=== PATIENT | male | born 1945 | race Caucasian/White ===

== ENCOUNTER 2016-11-07 05:48 | Inpatient (IN) | payer OTHER ==
[2016-11-07] MEDS ORDERED: LR 1,000 ML IV ONE (06:19)
[2016-11-07] MEDS ORDERED: LIDOCAINE 1% 2 ML INJ ID PRN (06:19)
[2016-11-07] MEDS ORDERED: VANCOMYCIN 1 GM/NS 250 ML BAG IV ONE (06:30)
--- NOTE | 2016-11-07 06:39 | PDHPUP ---
History & Physical Update H&P update statement: This history and physical update is based on an assessment of the patient which was completed after admission or registration (within 24 hours), but prior to the surgery/procedure. H&P update: H&P reviewed & patient examined, no change in patient's condition since H&P completed
[2016-11-07] MEDS ORDERED: BUPIVACAINE/EPI 0.25% 30 ML SDV ONE (07:05)
[2016-11-07] MEDS ORDERED: THROMBIN (BOVINE) 20,000 UNIT VIAL TP ONE (07:05)
[2016-11-07] MEDS ORDERED: BACITRACIN 50,000 UNITS/10 ML SYR IRR ONE ×2 (07:05→12:26)
[2016-11-07] MEDS ORDERED: LACTULOSE 20 GM/30 ML UDCUP PO PRN (07:29)
[2016-11-07] MEDS ORDERED: ONDANSETRON DISINTEGRATING 4 MG TAB PO PRN (07:29)
[2016-11-07] MEDS ORDERED: NALOXONE HCL 0.4 MG/ML INJ IVP PRN ×2 (07:29→13:20)
[2016-11-07] MEDS ORDERED: BISACODYL 10 MG SUPP PR PRN (07:29)
[2016-11-07] MEDS ORDERED: MAGNESIUM HYDROXIDE 30 ML UDCUP PO PRN (07:29)
[2016-11-07] MEDS ORDERED: diphenhydrAMINE 25 MG CAP PO PRN (07:29)
[2016-11-07] MEDS ORDERED: NS 500 ML IV PRN (07:29)
[2016-11-07] MEDS ORDERED: DEXMEDETOMIDINE HCL 400 MCG in NS 100 ML IV SCH (07:30)
[2016-11-07] MEDS ORDERED: LIDOCAINE 2% 100 MG/5 ML SYR ONE (07:38)
[2016-11-07] MEDS ORDERED: PHENYLEPHRINE 10 MG/ML SDV ONE (07:38)
[2016-11-07] MEDS ORDERED: METOCLOPRAMIDE 10 MG/2 ML VIAL ONE (07:38)
[2016-11-07] MEDS ORDERED: PROPOFOL/EMULSION 500 MG/50 ML BOTTLE IV ONE ×4 (07:38→12:11)
[2016-11-07] MEDS ORDERED: ROCURONIUM 100 MG/10 ML VIAL ONE (07:38)
[2016-11-07] MEDS ORDERED: DEXAMETHASONE 4 MG/ML VIAL ONE ×2 (07:38)
[2016-11-07] MEDS ORDERED: MIDAZOLAM 2 MG/2 ML VIAL ONE (07:41)
--- NOTE | 2016-11-07 09:23 | PDANEPAE ---
ANE Past Medical History - Cardiovascular History Hx Hypertension: No Hx Arrhythmias: No Hx Chest Pain: No Hx Coronary Artery / Peripheral Vascular Disease: Yes Hx CHF / Valvular Disease: No Hx Palpitations: No Cardiovascular History Comment: HYPERLIPIDEMIA W/PARTIALLY BLOCKED ARTERIES. ANGIOGRAM 2016 NO STENTS - Pulmonary History Hx COPD: No Hx Asthma/Reactive Airway Disease: No Hx Recent Upper Respiratory Infection: No Hx Oxygen in Use at Home: No Hx Sleep Apnea: No Sleep Apnea Screening Result - Last Documented: Negative - Neurologic History Hx Cerebrovascular Accident: No Hx Seizures: No Hx Dementia: No - Endocrine History Hx Diabetes: No - Renal History Hx Renal Disorders: Yes Renal History Comment: kidney stones past - Liver History Hx Hepatic Disorders: No - Neurological & Psychiatric Hx Hx Neurological and Psychiatric Disorders: No - Cancer History Hx Cancer: No - Congenital Disorder History Hx Congenital Disorders: No - GI History Hx Gastrointestinal Disorders: No - Other Health History Other Health History: [place] ON LT - Chronic Pain History Chronic Pain: Yes (LOWER BACK) - Surgical History Prior Surgeries: S1-L3 FUSION ANE Review of Systems - Exercise capacity METS (RN): 4 METS - Cardio Pulmonary Function Testing Nuclear stress test: see chart ANE Patient History - Allergies Allergies/Adverse Reactions: Penicillins Allergy (Severe, Verified 11/07/16 06:23) Anaphylaxis - Home Medications Home Medications: Herbals/Supplements -Info Only 1 ea PO DAILY 09/01/14 [Last Taken 1 Week Ago] Aspirin [Aspirin 81mg (*)] 162 mg PO DAILY 10/12/16 [Last Taken 10/31/16] Atorvastatin Calcium [Lipitor 20 mg (*)] 20 mg PO DAILY 10/12/16 [Last Taken 05/25 05:00] Cholecalciferol (Vitamin D3) [Vitamin D3] 5,000 unit PO DAILY 10/12/16 [Last Taken Unknown] - NPO status NPO Since - Liquids (Date): 11/06/16 NPO Since - Liquids (Time): 22:00 NPO Since - Solids (Date): 11/06/16 NPO Since - Solids (Time): 21:30 - Smoking Hx Smoking Status: Former smoker - Family Anes Hx Family Hx Anesthesia Complications: NONE ANE Labs/Vital Signs - Vital Signs Blood Pressure: 144/80 Heart Rate: 60 Respiratory Rate: 16 O2 Sat (%): 98 Height: 175.26 cm Weight: 77.111 kg ANE Physical Exam - Airway Mallampati Score: Class 2 Mouth exam: dentures - Pulmonary Pulmonary: no respiratory distress - Cardiovascular Cardiovascular: regular rate and rhythym - ASA Status ASA Status: II ANE Anesthesia Plan Lines/Monitors: arterial line (possible)
[2016-11-07] MEDS ORDERED: GLYCOPYRROLATE 0.2 MG/1 ML VIAL ONE (10:06)
[2016-11-07] MEDS ORDERED: VANCOMYCIN HCL/NORMAL SALINE 250 ML IV ONE ×2 (11:42→19:00)
[2016-11-07] MEDS ORDERED: SUGAMMADEX SODIUM 200 MG/2 ML VIAL IVP ONE (12:25)
[2016-11-07] MEDS ORDERED: OXYCODONE/APAP 5/325 TAB PO PRN (13:20)
[2016-11-07] MEDS ORDERED: ONDANSETRON 4 MG/2 ML VIAL IVP PRN (13:20)
[2016-11-07] MEDS ORDERED: LR 500 ML IV PRN (13:20)
[2016-11-07] MEDS ORDERED: HYDROCODONE/APAP 5/325 TAB PO PRN (13:20)
[2016-11-07] MEDS ORDERED: ACETAMINOPHEN 500 MG TAB PO PRN (13:20)
[2016-11-07] MEDS ORDERED: MEPERIDINE 25 MG/ML SYR IVP PRN (13:20)
[2016-11-07] MEDS ORDERED: HYDROmorphONE/DILAUDID 1 MG/ML SYR IVP PRN (13:20)
--- NOTE | 2016-11-07 13:23 | POSTANESTH ---
Post Anesthetic Evaluation Respiratory Status: Normal, Stable Level of Consciousness/Mental Status: Can Participate in Eval Pain Control: Adequate, Prn Tx Ordered Nausea/Vomiting Control: Adequate, Prn Tx Ordered Complications Possibly Related to Anesthesia: None Noted
[2016-11-07] MEDS ORDERED: fentaNYL 100 MCG/2 ML INJ ONE (13:33)
[2016-11-07] MEDS: fentaNYL 100 MCG/2 ML INJ IVP PRN ×2 (13:36→13:49)
--- NOTE | 2016-11-07 13:50 | SOAPPROG ---
SOAP Progress Note Assessment/Plan: Post Op Visit: S: Awake and alert. NAD. Pt with expected lower back pain O: AFVSS/PERRLA/EOMI no droop CN 2-12 grossly intact +lt touch 5/5 BUE/BLE = CDI HAMLET in place and working A/P: 71 yo male that is s/p removal of L3 screws with new TLIF at L1/2 and L2/3 with tie PSF L1-S1 -brace fit already -pt seen by Dr Piper -no bending or twisting -call with any questions or concerns 11/07/16 13:45 Objective: Vital Signs Temp Pulse Resp BP Pulse Ox 36.6 C 60 16 144/80 H 98 11/07/16 07:00 11/07/16 09:23 11/07/16 09:23 11/07/16 09:23 11/07/16 09:23 ICD10 Worksheet Patient Problems: Problems Problem Status Onset Arthrodesis status Acute Low back pain Acute Lumbosacral stenosis Acute
[2016-11-07] MEDS ORDERED: ceFAZolin 2 GM/DEXTROSE 100 ML IV SCH (14:00)
[2016-11-07] MEDS: METHOCARBAMOL 750 MG TAB PO PRN (15:38)
[2016-11-07] MEDS: ACETAMINOPHEN 500 MG TAB PO SCH ×2 (15:38→21:13)
[2016-11-07] MEDS: ATORVASTATIN CALCIUM 20 MG TAB PO SCH (15:47)
[2016-11-07] MEDS: morphINE SR 15 MG TAB PO SCH ×2 (15:48→20:33)
[2016-11-07] MEDS: SENNOSIDES/DOCUSATE SODIUM TAB PO SCH ×2 (15:48→20:32)
[2016-11-07] MEDS: FAMOTIDINE 20 MG TAB PO SCH ×2 (15:48→20:32)
[2016-11-07] MEDS: HYDROmorphONE/DILAUDID 6 MG/30 ML PCA IV PRN (17:07)
[2016-11-07 18:58] LABS: ANION GAP 6 mEq/L (8-16); CALCIUM 8.7 mg/dL (8.5-10.4); CARBON DIOXIDE 23 mEq/l (22-31); CHLORIDE 112 mEq/L (97-110); GLOMERULAR FILTRATION RATE > 60; GLUCOSE 132 mg/dL (70-100); MAGNESIUM 1.8 mg/dL (1.6-2.3); POTASSIUM 4.4 mEq/L (3.5-5.2); SODIUM 141 mEq/L (134-144)
--- NOTE | 2016-11-07 21:18 | GCON ---
[f rep st] CONSULTATION GEOSPATIAL ANALYST CONSULTATION Patient examined postoperatively after receiving a removal of L3 screws, a new TLIF at L1-L2, L2-L3, and a PSF at L1 through S1. The patient is a very pleasant 71-year-old white male with a past medi lavell history of hypercholesterolemia and chronic back pain. Again, he is examined postoperatively an d discussed with the patient overall he is doing quite well. His pain is reasonably well controlled . He denies any chest pain, pleuritic-type chest pain or angina equivalent. No fever or night swea ts. No nausea, vomiting, or diarrhea. PAST MEDICAL HISTORY: Significant for hypercholesterolemia. ALLERGIES: Penicillins. SOCIAL HISTORY: Previous smoking history, none for over 30 years. He drinks 2 glasses of wine per night. 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 He is , has excellent family support. MEDICATIONS: Currently include Tylenol, Lipitor, Dulcolax, Benadryl, Lovenox, Pepcid, Dilaudid REFRIGERATION TECHNICIAN, milk of magnesia, Senokot, vancomycin. PHYSICAL EXAMINATION: VITAL SIGNS: Blood pressure is 98/67, pulse 81, respirations 15, temperature is 36.3, oxygen saturation 98% on 2 L. GENERAL: He is a well-developed, well-nourished, 71-year-o ld white male, who is resting comfortably in no acute distress. HEENT: Eyes are MUKUL, EOMI. Throa t shows no erythema or tonsillar hypertrophy. NECK: Supple. There is no cervical adenopathy. HEA RT: Regular rate and rhythm without murmurs, rubs, or gallops. LUNGS: Clear to auscultation. No wheeze or rhonchi. ABDOMEN: Soft, nontender. Bowel sounds are present in all 4 quadrants. EXTREM ITIES: No clubbing, cyanosis, or edema. LABORATORY DATA: Currently pending. IMPRESSION: 1. Chronic back pain. 2. Status post removal of L3 screws with TLIF at L1-L2, L2-L3, and a PSF L1-S1. 3. Pain adequately controlled. RECOMMENDATIONS: 1. Continue adequate pain control. 2. DVT and PE prophylaxis. 3. Stress ulcer prophylaxis. 4. Early ambulation. 5. Physical therapy and occupational therapy. 6. Patient has been fit for a brace. /[id number]/MODL
--- NOTE | 2016-11-07 21:33 | GOP ---
[f rep st] OPERATIVE REPORT DATE OF OPERATION: 11/07/2016 SURGEON: Joe Piper MD BEVERAGE HOST: Devonte Maurer PA-C. 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 PROCEDURE PERFORMED: Removal of posterior segmental instrumentation, posterolateral and interverteb ral arthrodesis L1-2, L2-3 (62768, [id number]), placement of new posterior segmental instrumentation L1, L2 and L3, spinal stereotaxy, same-incision bone graft harvest, placement of biomechanical intervert ebral device L1-2, L2-3. FINDINGS: ESTIMATED BLOOD LOSS: 400 cc. DESCRIPTION OF PROCEDURE: The patient was taken to the operating room, placed in a supine position. General anesthesia was begun. He was flipped prone onto the Gilmar table. Care was taken to pad all points of contact. His left arm was put up in usual position. The right arm was placed at his side, flexed at the elbow, and flexed forward at the shoulder, but the shoulder was not abducted. He was in a very physiologic position and secured in this way. He was sterilely prepped and draped in usual fashion. We opened the rostral portion of the prior incision and extended it rostrally for about 7 cm. Subcutaneous tissue was dissected using PlasmaBlade down through the fascia and a subp eriosteal dissection was made down the T12 lamina. The L1-L2 lamina was exposed. The L3 screws and L4 screws were exposed. We removed the cap screws from the L3 and L4 screws. We then cut the skyler at the L3 screws and removed both of the L3 screws. We performed an O-arm spin prior to this exposu re, looking at the quality of the fusion from L3-S1, and there was no evidence of pseudoarthrosis, t here was no loosening of hardware, and there appeared to be solid posterolateral and intervertebral arthrodesis at each of those levels. We now cut the rods on both sides and removed both of the L3 s crews. We then prepared the area around the each of the rostral tips of the rods for placement of o ur connector. We used high-speed drill to drill out some the posterolateral bone mass and for accep tance of the connector. We then attached the Stealth reference frame, and using frameless Stealth s tereotaxy, placed pedicle screws bilaterally at L1 and L2. They all stimulated at acceptable levels and an O-arm spin was made, confirming the position of all hardware. We took a 90 mm skyler on the ri ght and an 80 mm prebent skyler for the left. We cut off the tips of the rods and straighten them, but not perfectly straight. The patient began the surgery with kyphosis at the levels in question. We wanted to achieve some small measure of lordosis from this surgery. We placed the new skyler down ove r the tulips and into the connector and then final tightened the cap screws and the connector and re placed the cap screws in the L4 screws on each side. As we reduced the tulips into the skyler, there w as some reduction of the kyphosis. We then distracted more on the right than on the left to get cor rection of the degenerative scoliotic curve, and also to open up the disk space, and this worked morales n nicely. We then removed the inferior L1 spinous process, the complete L2 spinous process, the ros tral L3 spinous process for autologous grafting purposes, and drilled bilateral L1-2 laminae and L2- 3 laminae for autologous grafting purposes. The microscope was introduced, and we decompressed both sides bilaterally, all the way from the L2-3 level, all the way up to L1-2, and an excellent decomp ression was obtained. There was severe stenosis. It actually took some time because of the severit y of the stenosis. We then removed the left L1-2 and L2-3 facet joints in preparation for a TLIF at each level. The conus ended at about T12 and was not exposed in this case, but we began by sweepin g the thecal sac medially at the L1-2 level, and incising this disk, and removed the disk and the ca rtilaginous endplates. We then roughened the subchondral bone to create arthrodesis and went to the L2-3 level, where we swept the thecal sac medially, incised the L2-3 disk, removed the disk and the cartilaginous endplates. We roughened the subchondral bone to create arthrodesis at that level, an d did likewise at L1-2 we then chose 7 x 28 mm Elevate cages packed with a BMP sponge. We used only a tiny amount of BMP in the disk space, 0.125 mg in each of the interspaces, and we placed bone aut ograft in the interspace. We placed expandable 7 x 28 mm cages into each space and under fluoroscop ic guidance expanded them both in a torque-limited way. They were in excellent position. We then d ecorticated all the remaining posterolateral bone and hypertrophic facets bilaterally at L1-2, L2-3, and L3-4. Care was taken to avoid the T12-L1 facet joint, and this was completely preserved. We t marlon placed a subfascial drain, then closed the incision in multiple layers using Vicryl sutures. Ru nning PDS was placed in the skin itself. There were no complications. COMPLICATIONS: None. INDICATIONS FOR PROCEDURE: The patient is a healthy 71-year-old with a prior L3 to S1 fusion and an excellent clinical result, who did well with that surgery, but developed increasing pain, predomina ntly in the left leg, and a new MRI demonstrated the development of adjacent segment disease at L1-2 , L2-3 above his prior fusion. He had severe disk degenerative changes and focal kyphosis at those levels, and I suggested a 2-level fusion as a treatment option. I did not think laminectomy alone w ould be useful. The risk of screw and hardware malposition, malfunction, pseudoarthrosis, adjacent segment disease, the need for revision surgery; all this was discussed. He understood these risks. He did want to proceed. He knew there was a risk of infection, as well as CSF leak. /[id number]/MODL
[2016-11-07] MEDS: NS 1,000 ML IV SCH (23:22)
[2016-11-08] MEDS: METHOCARBAMOL 750 MG TAB PO PRN (01:36)
[2016-11-08 05:10] LABS: HEMATOCRIT 27.3 % (40.0-51.0); HEMOGLOBIN 9.4 g/dL (13.7-17.5)
[2016-11-08] MEDS: ACETAMINOPHEN 500 MG TAB PO SCH ×3 (06:05→20:06)
--- NOTE | 2016-11-08 07:35 | NEUSURGPN ---
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 Pt with expected lower back pain. No tello/neck/chest/abd or gu complaints. No f/c/n/v/d. Objective: AFVSS/PERRLA/EOMI no droop CN 2-12 grossly intact +lt touch 5/5 BUE/BLE = CDI HAMLET in place and working Neuro Check Frequency: per routine Urinary Catheter in Place: No Catheter Insertion Date: 11/07/16 - Physician Discussed Patient with Dr.: Feliz Patient Seen by : Feliz Neurosurgery Physical Exam - Vitals, I&O, Labs I and O 11/07/16 11/08/16 11/09/16 05:59 05:59 05:59 Intake Total 5699.9 Output Total 3315 Balance 2384.9 Weight 77.111 kg Intake: Oral (ml) 550 IV Intake (ml) 3300 IV Infused (ml) 1849.9 Dexmedetomidine HCl 400 7.9 mcg In Ns 100 ml @ Titrate IV CONT DARIEL Rx#: [id number] Ns 1,000 ml @ 100 mls/hr 1567 IV CONT DARIEL Rx#: [id number] Vancomycin HCl/Normal 275 Saline 250 ml @ 250 mls/ hr IV ONCE ONE Rx#: [id number] Output: Urine (ml) 2565 Catheter 2565 HAMLET Drain Output (ml) 750 #1 Left Back [place] 750 Albert Other: Intake Quantity Yes Sufficient Vital Signs Temp Pulse Resp BP Pulse Ox 36.9 C 67 16 104/53 L 99 11/08/16 03:53 11/08/16 05:33 11/08/16 05:33 11/08/16 05:33 11/08/16 05:33 Laboratory Results 11/08/16 04:46 11/07/16 17:15 ICD10 Worksheet Patient Problems: Problems Problem Status Onset Arthrodesis status Acute Low back pain Acute Lumbosacral stenosis Acute
--- NOTE | 2016-11-08 08:57 | PDINTPN ---
Trauma Director Progress Note Assessment/Plan: Assessment: * Chronic back pain * Status post extensive back surgery with hardware removal * Pain well tolerated Plan: Continue PTOT Ambulation Continue pain control Subjective: Sitting up in chair. Comfortable. Pain is well tolerated. Objective: Vital Signs Temp Pulse Resp BP Pulse Ox 36.9 C 67 16 108/58 L 95 11/08/16 07:54 11/08/16 07:54 11/08/16 07:54 11/08/16 07:54 11/08/16 07:54 Laboratory Results 11/08/16 04:46 11/07/16 17:15 11/07/16 11/08/16 11/09/16 05:59 05:59 05:59 Intake Total 5699.9 Output Total 3315 Balance 2384.9 Physical Exam - Physical Exam General Appearance: WD/WN, alert, no apparent distress EENT: PERRL/EOMI, normal ENT inspection, pharynx normal, TMs normal Neck: non-tender, full range of motion, supple, normal inspection Respiratory: chest non-tender, lungs clear, normal breath sounds Cardiac/Chest: normal peripheral pulses, regular rate, rhythm Abdomen: normal bowel sounds, non-tender, soft Male Genitalia: deferred Rectal: deferred Skin: normal color, warm/dry Extremities: normal range of motion, non-tender, normal inspection, normal capillary refill ICD10 Worksheet Patient Problems: Problems Problem Status Onset Arthrodesis status Acute Low back pain Acute Lumbosacral stenosis Acute
[2016-11-08] MEDS: FAMOTIDINE 20 MG TAB PO SCH ×2 (09:41→20:06)
[2016-11-08] MEDS: morphINE SR 15 MG TAB PO SCH ×2 (09:41→20:06)
[2016-11-08] MEDS: ATORVASTATIN CALCIUM 20 MG TAB PO SCH ×2 (09:42→10:24)
[2016-11-08] MEDS: SENNOSIDES/DOCUSATE SODIUM TAB PO SCH ×2 (09:43→20:06)
[2016-11-08] MEDS: NS 1,000 ML IV SCH (10:29)
[2016-11-09] MEDS: NS 1,000 ML IV SCH ×2 (01:22→21:35)
[2016-11-09] MEDS: oxyCODONE IR 5 MG TAB PO PRN ×4 (01:26→20:34)
[2016-11-09] MEDS: ACETAMINOPHEN 500 MG TAB PO SCH ×3 (05:24→20:37)
[2016-11-09] MEDS: HYDROmorphONE/DILAUDID 6 MG/30 ML PCA IV PRN (05:25)
--- NOTE | 2016-11-09 08:24 | NEUSURGPN ---
Date of Surgery: 11/07/16 Post Op Day: 2 Assessment/Plan: Assessment: 71 yo male that is s/p removal of L3 screws with new TLIF at L1/2 and L2/3 with tie PSF L1-S1 POD #2 Plan: -pt with some expected lower back pain -incision is CDI -DC HAMLET -sitting in chair -brace-wear when out of bed -post op xrays pending -Try to optimize pain management with oral medications, may dc home later this weekend -pt seen by Dr Piper -no bending or twisting -call with any questions or concerns Subjective: Patient sitting in chair feeling well Objective: AFVSS/PERRLA/EOMI no droop CN 2-12 grossly intact +lt touch 5/5 BUE/BLE = CDI HAMLET in place-will dc Neuro Check Frequency: per routine Urinary Catheter in Place: No Catheter Insertion Date: 11/07/16 - Physician Discussed Patient with : Feliz Patient Seen by : Feliz Neurosurgery Physical Exam - Vitals, I&O, Labs I and O 11/08/16 11/09/16 11/10/16 05:59 05:59 05:59 Intake Total 5699.9 2043.5 Output Total 3315 3720 Balance 2384.9 -1676.5 Weight 77.111 kg Intake: Oral (ml) 550 675 IV Intake (ml) 3300 385 IV Infused (ml) 1849.9 983.5 Dexmedetomidine HCl 400 7.9 mcg In Ns 100 ml @ Titrate IV CONT DARIEL Rx#: [id number] HYDROmorphone HCL See 1.5 Protocol IV PRN PRN Rx#: [id number] Ns 1,000 ml @ 100 mls/hr 1567 982 IV CONT DARIEL Rx#: [id number] Vancomycin HCl/Normal 275 Saline 250 ml @ 250 mls/ hr IV ONCE ONE Rx#: [id number] Output: Urine (ml) 2565 3450 Catheter 2565 300 Urinal 3150 HAMLET Drain Output (ml) 750 270 #1 Left Back [place] 750 270 Albert Other: Intake Quantity Yes Yes Sufficient Vital Signs Temp Pulse Resp BP Pulse Ox 37.5 C 68 14 127/65 H 97 11/09/16 04:00 11/09/16 04:00 11/09/16 04:00 11/09/16 04:00 11/09/16 04:00 Laboratory Results 11/08/16 04:46 11/07/16 17:15 ICD10 Worksheet Patient Problems: Problems Problem Status Onset Arthrodesis status Acute Low back pain Acute Lumbosacral stenosis Acute
[2016-11-09] MEDS: FAMOTIDINE 20 MG TAB PO SCH ×2 (08:50→20:33)
[2016-11-09] MEDS: SENNOSIDES/DOCUSATE SODIUM TAB PO SCH ×3 (08:50→21:41)
[2016-11-09] MEDS: ATORVASTATIN CALCIUM 20 MG TAB PO SCH (08:50)
[2016-11-09] MEDS: morphINE SR 15 MG TAB PO SCH ×2 (08:50→20:34)
[2016-11-09] MEDS: METHOCARBAMOL 750 MG TAB PO PRN ×2 (08:57→17:00)
[2016-11-09] MEDS: ONDANSETRON 4 MG/2 ML VIAL IVP PRN (21:41)
[2016-11-09] MEDS ORDERED: SIMETHICONE 80 MG TAB CHEW PO ONE (22:00)
[2016-11-10] MEDS: METHOCARBAMOL 750 MG TAB PO PRN ×4 (00:05→23:24)
[2016-11-10] MEDS: oxyCODONE IR 5 MG TAB PO PRN (00:05)
[2016-11-10] MEDS: ONDANSETRON 4 MG/2 ML VIAL IVP PRN (02:05)
[2016-11-10] MEDS ORDERED: PROMETHAZINE HCL 25 MG/ML INJ IVP PRN (04:00)
[2016-11-10] MEDS: ACETAMINOPHEN 500 MG TAB PO SCH ×4 (05:12→21:25)
[2016-11-10] MEDS: SENNOSIDES/DOCUSATE SODIUM TAB PO SCH ×2 (10:21→21:25)
[2016-11-10] MEDS: POLYETHYLENE GLYCOL 3350 17 GM PKT PO PRN ×2 (10:22→17:37)
[2016-11-10] MEDS: morphINE SR 15 MG TAB PO SCH ×2 (10:24→21:25)
[2016-11-10] MEDS: ATORVASTATIN CALCIUM 20 MG TAB PO SCH (10:24)
[2016-11-10] MEDS: FAMOTIDINE 20 MG TAB PO SCH ×2 (10:24→21:25)
[2016-11-10] MEDS: NS 1,000 ML IV SCH (10:42)
[2016-11-10] MEDS: ENOXAPARIN 40 MG/0.4 ML SYR SC SCH (10:44)
--- NOTE | 2016-11-10 12:37 | SOAPPROG ---
SOAP Progress Note Assessment/Plan: Assessment: 71 yo M POD #3 L1-S1 fusion with L1/2, L2/3 TLIF Plan: neuro: stable, leg pain improved, continued back pain ileus: diffuse air on KUB, keep NPO for now, advance diet when passing gas PT/OT scd/lexis/lovenox of dvt prophylaxis post op x-rays show good position of hardware please call with neuro changes discussed with DR Alan 11/10/16 12:34 Subjective: continued back pain, no leg pain, abd distention with N/V last night, no Bm since surgery Objective: Vital Signs Temp Pulse Resp BP Pulse Ox 37.9 C 100 17 110/70 95 11/10/16 07:19 11/10/16 07:19 11/10/16 04:00 11/10/16 07:19 11/10/16 04:00 Laboratory Results 11/08/16 04:46 11/07/16 17:15 11/09/16 11/10/16 11/11/16 05:59 05:59 05:59 Intake Total 2043.5 400 Output Total 3720 2600 Balance -1676.5 -2200 AAOX4, +FC PERRL, EOMI, no facial droop 5/5 + light touch C/D/I ICD10 Worksheet Patient Problems: Problems Problem Status Onset Arthrodesis status Acute Low back pain Acute Lumbosacral stenosis Acute
[2016-11-10] MEDS ORDERED: NS 1,000 ML IV ONE (19:30)
[2016-11-10] MEDS ORDERED: NS W/ 20 KCl/L 1,000 ML IV SCH (19:30)
[2016-11-10] MEDS: METOCLOPRAMIDE 10 MG/2 ML VIAL IVP SCH ×2 (19:45→23:23)
[2016-11-10 23:33] VITALS: RESP 16
[2016-11-11] MEDS: METOCLOPRAMIDE 10 MG/2 ML VIAL IVP SCH ×2 (05:05→10:14)
[2016-11-11] MEDS: METHOCARBAMOL 750 MG TAB PO PRN ×2 (05:06→10:13)
[2016-11-11] MEDS: ACETAMINOPHEN 500 MG TAB PO SCH ×2 (05:06→10:12)
[2016-11-11 07:56] VITALS: BP 122/68; PULSE 84; TEMP 98.7; O2SAT 91
[2016-11-11] MEDS: ENOXAPARIN 40 MG/0.4 ML SYR SC SCH (08:41)
[2016-11-11] MEDS: morphINE SR 15 MG TAB PO SCH (08:41)
[2016-11-11] MEDS: FAMOTIDINE 20 MG TAB PO SCH (08:41)
[2016-11-11] MEDS: ATORVASTATIN CALCIUM 20 MG TAB PO SCH (08:41)
[2016-11-11] MEDS: SENNOSIDES/DOCUSATE SODIUM TAB PO SCH (08:42)
--- NOTE | 2016-11-11 12:30 | SOAPPROG ---
SOAP Progress Note Assessment/Plan: Assessment: 71 yo M POD #4 L1-S1 fusion with L1/2, L2/3 TLIF Plan: neuro: stable, leg pain improved, continued back pain ileus: improved, BM x 2 last night PT/OT scd/lexis/lovenox of dvt prophylaxis post op x-rays show good position of hardware dc home today please call with neuro changes discussed with DR Alan 11/10/16 12:34 11/11/16 12:29 Subjective: back pain improving, no leg pain, + Bm x 2 last night. Objective: Vital Signs Temp Pulse Resp BP Pulse Ox 37.1 C 84 16 122/68 H 91 L 11/11/16 07:54 11/11/16 07:54 11/11/16 07:54 11/11/16 07:54 11/11/16 07:54 Laboratory Results 11/08/16 04:46 11/07/16 17:15 11/10/16 11/11/16 11/12/16 05:59 05:59 05:59 Intake Total 400 Output Total 2600 700 Balance -2200 -700 AAOx4, +FC PERRL, EOMI, no facial droop 5/5 + light touch C/D/I ICD10 Worksheet Patient Problems: Problems Problem Status Onset Arthrodesis status Acute Low back pain Acute Lumbosacral stenosis Acute
== END 2016-11-11 13:53 | disposition home or self-care (01) | DRG 460 ==
LOC: F3N 05:48 → F2N 15:17 → F3N 11-09 07:28
PROVIDERS: ADMIT Neurological Surgery; ATTEND Neurological Surgery
PROC: 0SG10AJ Fusion of 2 or more Lumbar Vertebral Joints with Interbody Fusion Device, Posterior Approach, Anterior Column, Open Approach (ICD-10-PCS; principal; 2016-11-07 07:30)
PROC: 0SB20ZZ Excision of Lumbar Vertebral Disc, Open Approach (ICD-10-PCS; principal; 2016-11-07 07:30)
PROC: 0SG1071 Fusion of 2 or more Lumbar Vertebral Joints with Autologous Tissue Substitute, Posterior Approach, Posterior Column, Open Approach (ICD-10-PCS; principal; 2016-11-07 07:30)
PROC: 01NB0ZZ Release Lumbar Nerve, Open Approach (ICD-10-PCS; principal; 2016-11-07 07:30)
DX: M48.06 Spinal stenosis, lumbar region (principal); M54.16 Radiculopathy, lumbar region; E78.5 Hyperlipidemia, unspecified
CPT/HCPCS: 97116-GP; 97161-GP; 97166-GO; 97535-GO; C1713; G8978-GP-CI; G8979-GP-CI; G8980-GP-CI; G8987-GO-CK; G8988-GO-CI; G8989-GO-CI; J1100; J1170; J1650; J2001; J2250; J2370; J2405; J2704; J2765; J3010; J3370